=== PATIENT | male | born 1995 | race Caucasian/White ===

== ENCOUNTER 2021-09-09 14:56 | Emergency (ER) | payer OTHER ==
[~2021-09-09] VITALS: Ht 170.2 cm; Wt 79.4 kg
[2021-09-09 15:05] VITALS: BP 117/77
[2021-09-09] MEDS ORDERED: KETOROLAC 30 MG/ML VIAL IVP ONE (15:05)
--- NOTE | 2021-09-09 15:14 | NUR ---
PT AMBULATED TO ER BED 2 WITH A STEADY GAIT.
--- NOTE | 2021-09-09 15:15 | NUR ---
25 Y/O MALE C/O DYSURIA, POLYURIA, PYURIA X 1 WEEK. PT STATES HE WANTS TO CHECK FOR STDS. DENIES FEVER/CHILLS. DENIES N/V/D. DENIES PMH NKA
--- NOTE | 2021-09-09 15:55 | NUR ---
MAIDA LAIRDTO AT PT BEDSIDE FOR FURTHER EVALUATION.
[2021-09-09] MEDS ORDERED: PENICILLIN G BENZATHINE L-A 1.2 MU/2 ML SYR IM ONE (16:00)
[2021-09-09] MEDS ORDERED: cefTRIAXone 500 MG VIAL IM ONE (16:00)
[2021-09-09] MEDS ORDERED: metroNIDAZOLE 500 MG TAB PO ONE (16:00)
[2021-09-09] MEDS ORDERED: DOXY-565 PO (16:06)
[2021-09-09] MEDS ORDERED: PYR100 PO (16:06)
[2021-09-09] MEDS ORDERED: CEPH-588 PO (16:06)
[2021-09-09] MEDS ORDERED: LIDOCAINE MPF 1% 5 ML ONE (16:12)
[2021-09-09] MEDS ORDERED: LIDOCAINE MPF 1% 10 MG/ML VIAL INJ ONE (16:15)
[2021-09-09 16:41] VITALS: BP 117/77
--- NOTE | 2021-09-09 16:41 | NUR ---
Patient discharged with v/s stable. Written and verbal after care instructions given and explained. Patient alert, oriented and verbalized understanding of instructions. Ambulatory with steady gait. All questions addressed prior to discharge. ID band removed. Patient advised to follow up with PMD. Rx of KEFLEZ, DOXYCYCLINE, AND PYRIDIUM given. Patient educated on indication of medication including possible reaction and side effects. Opportunity to ask questions provided and answered.
== END 2021-09-09 16:41 | disposition home or self-care (01) ==
LOC: MED 14:56
DX: N39.0 Urinary tract infection, site not specified (principal); R30.0 Dysuria
CPT/HCPCS: 36415; 81002; 87086; 96372; 99284; J0561; J0696; J2001; J1885